=== PATIENT | male | born 1960 | race African-American/Black ===

== ENCOUNTER 2019-02-19 13:41 | Emergency (ER) | payer MEDICAID, OTHER ==
[~2019-02-19] VITALS: Ht 180.3 cm; Wt 68.0 kg
[2019-02-19 13:51] VITALS: BP 130/80
== END 2019-02-19 18:27 | disposition left against medical advice (07) ==
LOC: ER 13:41
DX: Z53.21 Procedure and treatment not carried out due to patient leaving prior to being seen by health care provider (principal)

== ENCOUNTER 2022-12-31 16:02 | Emergency (ER) | payer MEDICAID ==
[~2022-12-31] VITALS: Ht 172.7 cm; Wt 80.0 kg
[2022-12-31 16:08] VITALS: BP 146/69; PULSE 104; RESP 18; TEMP 99.1; O2SAT 96
== END 2022-12-31 16:23 | disposition left against medical advice (07) ==
LOC: ER 16:02
DX: Z53.21 Procedure and treatment not carried out due to patient leaving prior to being seen by health care provider (principal)
CPT/HCPCS: 99281

== ENCOUNTER 2023-02-16 11:12 | Emergency (ER) | payer MEDICAID ==
[~2023-02-16] VITALS: Ht 182.9 cm; Wt 79.0 kg
[2023-02-16 11:15] VITALS: TEMP 97.8; O2SAT 99
[2023-02-16 11:40] VITALS: BP 116/78; PULSE 82; RESP 16
[2023-02-16] MEDS ORDERED: KETOROLAC 30MG/ML VIAL IM STA (11:40)
[2023-02-16] MEDS ORDERED: ONDANSETRON HCL 4MG/2ML INJ IM STA (11:40)
[2023-02-16 12:17] LABS: EOSINOPHILS % 1.9 % (0.0-5.0); HEMATOCRIT. 33.7 % (42.0-52.0); HEMOGLOBIN. 11.3 g/dL (14.0-18.0); LYMPHOCYTES % 26.8 % (20.0-50.0); MEAN CORPUSCULAR HEMOGLOBIN 29.4 pg (28.0-32.0); MEAN CORPUSCULAR HGB CONC 33.6 g/dL (31.0-37.0); MEAN CORPUSCULAR VOLUME 87.6 fL (80.0-94.0); MEAN PLATELET VOLUME 7.2 fl (7.4-10.4); MONOCYTES % 6.4 % (2.0-8.0); NEUTROPHILS % 63.9 % (40.0-76.0); PLATELET 411 x1000/uL (130-400); RED BLOOD CELL COUNT 3.84 mill/uL (4.7-6.1); RED CELL DISTRIBUTION WIDTH 14.2 % (11.6-14.6); WHITE BLOOD COUNT 4.5 x1000/uL (4.5-11.0)
[2023-02-16 12:42] LABS: CHLORIDE 106 mEq/L (98-107); INDEX HEMOLYSI 1 (1-3); INDEX ICTERIC 1 (1-4); INDEX LIPEMIC 1 (1-3); POTASSIUM 3.2 mEq/L (3.5-5.1); SODIUM 140 mEq/L (136-145)
[2023-02-16 12:52] LABS: ALANINE AMINOTRANSFERASE 17 IU/L (13-61); ALBUMIN 3.8 g/dL (3.4-5.0); ASPARTATE AMINOTRANSFERASE 19 IU/L (15-37); BILIRUBIN TOTAL 0.5 mg/dL (0.1-1.0); CALCIUM 9.4 mg/dL (8.5-10.1); CARBON DIOXIDE 28 mEq/L (21-32); CREATININE 0.8 mg/dL (0.6-1.3); ETHANOL BLOOD < 10 mg/dL (<10); GLUCOSE 108 mg/dL (70-105); PROTEIN TOTAL 8.2 g/dL (6.0-8.3); UREA NITROGEN BLOOD 16 mg/dL (7-21)
[2023-02-16] MEDS ORDERED: ACETAMINOPHEN 325MG TABLET PO STA (14:36)
[2023-02-16] MEDS ORDERED: POTASSIUM CHLORIDE 20MEQ TABLET SR PO ONE (14:45)
== END 2023-02-16 15:16 | disposition left against medical advice (07) ==
LOC: ER 11:12
DX: S82.301A Unspecified fracture of lower end of right tibia, initial encounter for closed fracture (principal); E87.6 Hypokalemia; K52.9 Noninfective gastroenteritis and colitis, unspecified; F12.10 Cannabis abuse, uncomplicated; J45.909 Unspecified asthma, uncomplicated; E11.9 Type 2 diabetes mellitus without complications; V89.2XXA Person injured in unspecified motor-vehicle accident, traffic, initial encounter; Y93.89 Activity, other specified; Y92.89 Other specified places as the place of occurrence of the external cause; Y99.8 Other external cause status
CPT/HCPCS: 80053; 80320; 83690; 85025; 36415; 71045; 73610; 96372; 99284; J1885; J2405; G0480